=== PATIENT | male | born 1995 | race Caucasian/White ===

== ENCOUNTER 2016-11-18 17:35 | Emergency (ER) | payer BC ==
[~2016-11-18] VITALS: Ht 188 cm; Wt 108.9 kg
--- NOTE | 2016-11-18 17:38 | NUR ---
PT BIBA TO BED 5
[2016-11-18 17:41] VITALS: BP 116/64
--- NOTE | 2016-11-18 17:42 | NUR ---
21M KIMBERLY FROM [facility] C/O SYNCOPAL EPISODE WHILE TRAINING AND ALTERED LOC; PT A&OX3, UPON ARRIVAL, ABLE TO FOLLOW COMMANDS AND ANSWER SIMPLE QUESTIONS; PERRL, TACHYCARDIA NOTED ON MONITOR; BL LUNG SOUNDS CLEAR, RR EVEN/UNLABORED; SKIN IS DIAPHORETIC, INTACT, COOL TO TOUCH; PT VOMITED UPON ARRIVAL, BUT DENIES N/V/D AT THIS TIME; PT DENIES ANY PAIN OR DISCOMFORT AT THIS TIME. PT PLACED ON MONITOR, RESTING IN BED W/ HOB ELEVATED AND IN LOWEST POSITION; POSITIONED FOR COMFORT; ER MD MADE AWARE OF STATUS. WILL CONTINUE TO MONITOR.
[2016-11-18] MEDS ORDERED: NACL 0.9% 1,000 ML IV ONE ×3 (17:55→19:45)
--- NOTE | 2016-11-18 18:21 | NUR ---
PT TAKEN TO CT VIA [facility] ACCOMPANIED BY WHEEL AND CASTER REPAIRER.
--- NOTE | 2016-11-18 19:14 | NUR ---
Pt report given to HONORIO QUINN. Transfer of care at this time.
--- NOTE | 2016-11-18 19:15 | NUR ---
GOT REPORT FROM HONORIO LANIER. PT. RESTING IN BED, NO S/SX OF DISTRESS AT THIS TIME
[2016-11-18] MEDS ORDERED: ONDANSETRON 4 MG/2 ML VIAL IVP ONE (19:20)
--- NOTE | 2016-11-18 20:40 | NUR ---
Patient discharged with v/s stable. Written and verbal after care instructions given and explained. Patient alert, oriented and verbalized understanding of instructions. Ambulatory with steady gait. All questions addressed prior to discharge. ID band removed. Patient advised to follow up with PMD. Rx of ZOFRAN 4 MG given. Patient educated on indication of medication including possible reaction and side effects. Opportunity to ask questions provided and answered.
[2016-11-18 20:53] VITALS: BP 120/55
== END 2016-11-18 20:40 | disposition home or self-care (01) ==
LOC: MED 17:35
DX: E86.0 Dehydration (principal); N28.9 Disorder of kidney and ureter, unspecified
CPT/HCPCS: 36415; 70450; 71010; 80053; 82553; 82948; 85025; 93005; 96361; 96374; 99285; J2405; J7030; Q0092